=== PATIENT | male | born 1960 | race Caucasian/White ===

== ENCOUNTER 2020-06-30 20:59 | Emergency (ER) | payer OTHER ==
[~2020-06-30] VITALS: Ht 167.6 cm; Wt 95.3 kg
[2020-06-30] MEDS ORDERED: METFORMIN HCL500 M3 PO (21:08)
[2020-06-30] MEDS ORDERED: ASA81BEC PO (21:08)
[2020-06-30] MEDS ORDERED: GLIPIZIDE 10 MG10 MG PO (21:08)
[2020-06-30] MEDS ORDERED: LIPITOR40 MG PO (21:08)
[2020-06-30] MEDS ORDERED: NORVASC 2.5 MG2.5 M1 PO (21:09)
[2020-06-30 23:03] VITALS: BP 159/87
== END 2020-06-30 23:09 | disposition home or self-care (01) ==
LOC: ER 20:59
DX: H61.21 Impacted cerumen, right ear (principal); E11.9 Type 2 diabetes mellitus without complications; I10 Essential (primary) hypertension; F17.210 Nicotine dependence, cigarettes, uncomplicated; Z86.73 Personal history of transient ischemic attack (TIA), and cerebral infarction without residual deficits; Z79.899 Other long term (current) drug therapy